=== PATIENT | male | born 1960 | race Hispanic/Latino ===

== ENCOUNTER → 2017-07-01 | Outpatient (CLI) | payer MEDICARE | END | disposition home or self-care (01) | LOC: YCFC.O 07:51 | PROVIDERS: ATTEND Nurse Practitioner Family | DX: E11.9 Type 2 diabetes mellitus without complications (principal); Z12.5 Encounter for screening for malignant neoplasm of prostate; Z13.220 Encounter for screening for lipoid disorders; I10 Essential (primary) hypertension | CPT/HCPCS: 36415; 80053; 80061; 82043; 82570; 83036; 85025; G0103 ==

== ENCOUNTER → 2018-03-06 | Outpatient (CLI) | payer MEDICARE | LOC: YCFC.O 08:09 | DX: E11.9 Type 2 diabetes mellitus without complications (principal); I10 Essential (primary) hypertension; E78.5 Hyperlipidemia, unspecified ==

== ENCOUNTER → 2018-07-02 | Outpatient (CLI) | payer MEDICARE | LOC: YCFC.O 07:50 | PROVIDERS: ATTEND Family Medicine | DX: E11.9 Type 2 diabetes mellitus without complications (principal); I10 Essential (primary) hypertension; E78.00 Pure hypercholesterolemia, unspecified; R53.83 Other fatigue; Z12.5 Encounter for screening for malignant neoplasm of prostate | CPT/HCPCS: 36415; 80061; 82043; 82570; 83036; 84443; 85025; G0103 ==

== ENCOUNTER 2018-11-01 17:45 | Emergency (ER) | payer MEDICARE ==
[2018-11-01 18:48] VITALS: TEMP 98.3
[2018-11-01] MEDS ORDERED: TETANUS,DIPHTHERIA,PERTUSSIS 1 EA SYG IM ONE (19:02)
[2018-11-01] MEDS ORDERED: SILVER SULFADIAZINE 1 % 25 GM TUBE TOP ONE ×2 (19:46→19:49)
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
[2018-11-01 20:52] VITALS: BP 130/80; O2SAT 95
== END 2018-11-01 20:53 | disposition home or self-care (01) ==
LOC: ER 17:45
DX: T22.212D Burn of second degree of left forearm, subsequent encounter (principal); T23.202D Burn of second degree of left hand, unspecified site, subsequent encounter; E11.40 Type 2 diabetes mellitus with diabetic neuropathy, unspecified; I10 Essential (primary) hypertension; Z79.84 Long term (current) use of oral hypoglycemic drugs; Z79.899 Other long term (current) drug therapy; Z23 Encounter for immunization

== ENCOUNTER → 2019-11-08 | Outpatient (CLI) | payer MEDICARE | LOC: LAB.O 09:24 | PROVIDERS: ATTEND Family Medicine | DX: Z00.00 Encounter for general adult medical examination without abnormal findings (principal); I10 Essential (primary) hypertension; E11.9 Type 2 diabetes mellitus without complications; E78.5 Hyperlipidemia, unspecified; Z12.5 Encounter for screening for malignant neoplasm of prostate | CPT/HCPCS: 36415; 80053; 80061; 81001; 83036; 84443; 85025; G0103 ==

== ENCOUNTER → 2019-11-09 | Outpatient (CLI) | payer MEDICARE ==
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
== END ==
LOC: CT 09:55
PROVIDERS: ATTEND Family Medicine
DX: R31.9 Hematuria, unspecified (principal); N28.1 Cyst of kidney, acquired; K76.9 Liver disease, unspecified